=== PATIENT | female | born 1945 | race Caucasian/White ===

== ENCOUNTER → 2017-06-06 | Outpatient (CLI) | payer MEDICARE ==
--- NOTE | 2017-06-06 08:37 | MR ---
EXAMINATION TYPE: MR shoulder LT wo con DATE OF EXAM: 06/06/2017 8:28 AM COMPARISON: NONE HISTORY: lt shoulder pain TECHNIQUE: Multiplanar multispin echo imaging of the left shoulder was performed. FINDINGS: Rotator cuff : Full thickness partial tear is noted involving the anterior aspect of the supraspinatu s tendon at its critical zone. No evidence for complete retracted tear at this time. Underlying incre ased signal and thickening compatible with chronic tendinopathy. The remaining constituents of the ro tator cuff are grossly unremarkable. Bursa: No bursal effusion or thickening is seen. Musculature: There is no muscular tear, contusion, or atrophy. Acromioclavicular joint : Subacromial spurring with lateral downsloping of the acromion resulting in moderate subacromial impingement. Mild AC joint arthropathy. Osseous structures : There are no fractu res or regions of abnormal bone marrow signal intensity. Long biceps tendon : The biceps tendon is normally situated within the bicipital groove. No complete or partial biceps tendon tear is present. Glenohumeral Joint fluid : There is no glenohumeral joint effusion. Cartilage and Bone : No focal hyaline cartilage defects are noted. No Hill-Sachs, reverse Hill-Sachs, or bony Bankart lesions are seen. Labrum : There are no SLAP or soft tissue Bankart lesions. No paralabral cysts are seen. OTHER FINDINGS : none IMPRESSION: 1. Full thickness partial tear anterior aspect of the supraspinatus tendon at its critical zone secon britta to impingement. Underlying tendinopathy.
== END | disposition home or self-care (01) ==
LOC: RADMRIMAIN 07:41
PROVIDERS: ATTEND Orthopaedic Surgery
DX: S46.812A Strain of other muscles, fascia and tendons at shoulder and upper arm level, left arm, initial encounter (principal)

== ENCOUNTER 2017-11-27 06:02 | Day surgery (SDC) | payer MEDICARE ==
[2017-11-19 23:21] VITALS: BMI 25.7
--- NOTE | 2017-11-26 15:18 | HP ---
HISTORY AND PHYSICAL REASON FOR ADMISSION: Surgery scheduled on 11/27/2017 Tish Ott is a 72-year-old patient seen with progressive left shoulder pain. We discussed treatment options. She elected to proceed with arthroscopy. Consent was obtained. Preoperative medical clearance had been obtained. PAST MEDICAL HISTORY: Hypertension. PAST SURGICAL HISTORY: Shoulder arthroscopy, lumpectomy. MEDICATIONS: Adderall, Benadryl, Tylenol. ALLERGIES: THE PATIENT IS SENSITIVE TO NARCOTICS. SOCIAL HISTORY: Patient denies tobacco use. PHYSICAL EXAMINATION: Evaluation of the left shoulder flexion 120 degrees, abduction 110 degrees, external rotation is 10 degrees with some weakness. There is tenderness along the anterior lateral acromion rotator cuff insertion site. Impingement sign positive at 90 degrees. Distal neurovascular exam is intact. RADIOGRAPHS: Were obtained of the left shoulder revealing moderate acromioclavicular joint osteoarthritis. An MRI of left shoulder revealed rotator cuff tear and impingement. IMPRESSION: Left shoulder impingement with rotator cuff tear. PLAN: Left shoulder arthroscopy with subacromial decompression probable arthroscopic rotator cuff repair and debridement. Surgery scheduled for 11/27/2017. MMODL / IJN: [id number] /
[~2017-11-27 06:02] MED LIST: DEXAMETHASONE SOD PHOSPHATE 10 MG/ML 1 ML VIAL IV ONE; HYDROmorphone 0.5 MG/0.5 ML SYRINGE IVP PRN; LACTATED RINGERS 1,000 ML IV SCH; LIDOCAINE 1% 20 ML VIAL (10MG/ML) FOR IV START INTRADERMA PRN; MIDAZOLAM 2 MG/2 ML VIAL IV PRN; ONDANSETRON 4 MG/2 ML VIAL IVP ONE; SCOPOLAMINE 1.5MG/72HR PATCH TRANSDERM ONE; ceFAZolin 1,000 MG in DEXTROSE/WATER 1 50ML.BAG IV ONE
[2017-11-27] MEDS ORDERED: PROPOFOL 10 MG/ML 20 ML VIAL IV ONE (07:27)
[2017-11-27] MEDS ORDERED: SUCCINYLCHOLINE CHLORIDE 100 MG/5 ML SYR IV ONE (07:27)
[2017-11-27] MEDS ORDERED: ROCURONIUM BROMIDE 10 MG/ML 10 ML VIAL IV ONE (07:27)
[2017-11-27] MEDS ORDERED: NEOSTIGMINE 1 MG/ML 10 ML VIAL ONE (07:27)
[2017-11-27] MEDS ORDERED: GLYCOPYRROLATE 0.2 MG/ML 2 ML VIAL ONE (07:27)
[2017-11-27] MEDS ORDERED: MIDAZOLAM 2 MG/2 ML VIAL ONE (07:27)
[2017-11-27] MEDS ORDERED: PHENYLEPHRINE-0.9% NACL SYG 1 MG/10 ML SYRINGE ONE (07:27)
[2017-11-27] MEDS ORDERED: ROPIVACAINE 5 MG/ML 30 ML VIAL ONE (07:27)
[2017-11-27] MEDS ORDERED: ePHEDrine SULFATE/0.9% NACL/PF 50 MG/5 ML SYRINGE IV ONE (07:27)
[2017-11-27] MEDS ORDERED: LIDOCAINE 1% INJ 10MG/ML (20 ML MDV) ONE (07:27)
[2017-11-27] MEDS ORDERED: LIDOCAINE 2%-EPI 1:100,000 20 ML VIAL ONE (07:27)
[2017-11-27] MEDS ORDERED: LACTATED RINGERS 1,000 ML IV ONE (08:37)
--- NOTE | 2017-11-27 08:54 | P.OP ---
Date of Procedure: 11/27/17 Preoperative Diagnosis: Left shoulder impingement Postoperative Diagnosis: 1. Left shoulder rotator cuff tear 2. Left shoulder impingement 3. Left shoulder partial biceps tendon tear 4. Left shoulder superficial superior labral tear Procedure(s) Performed: 1. Left shoulder arthroscopic rotator cuff repair 2. Left shoulder arthroscopic subacromial decompression 3. Left shoulder arthroscopic biceps tenotomy 4. Left shoulder arthroscopic debridement superficial labral tear Implants: 1-5.5 peek anchor Anesthesia: GETA, regional (Interscalene block) Surgeon: Donte Mar Manager [employer]: Ced Peck Estimated Blood Loss (ml): 10 Pathology: none sent Condition: stable Disposition: PACU Indications for Procedure: 72-year-old patient seen with progressive left shoulder pain. After having treatment options discussed, she elected to proceed with arthroscopy. Operative Findings: See description of procedure Description of Procedure: Patient underwent a shoulder block by department of anesthesia. The patient was then taken to the operative suite. The patient underwent a general anesthetic by the department of anesthesia. The patient was placed into a lateral position and secured. There was appropriate padding of the bony prominence. Left shoulder was then prepped and draped in normal sterile orthopedic fashion. We placed the extremity in 10 pounds of longitudinal traction. A posterior incision was now made for a posterior working portal site. The trocar and cannula were inserted into the glenohumeral joint. Arthroscopy was initiated. Spinal needle was now inserted anteriorly, to ascertain the anterior working portal site. An incision was now made in that area, a trocar was inserted followed by a probe. There was superficial tearing of the superior labrum present. There were mild grade 1 chondromalacia changes of the glenohumeral joint without osteochondral tears present. There was partial tearing of the long head biceps tendon with hyperemia. I could visualize a distal supraspinatus rotator cuff tear from the glenohumeral side. I performed an arthroscopic biceps tenotomy. I debrided that superficial labral tear down to stable tissue. The residual labrum was stable. Instruments were now removed from glenohumeral joint. Utilizing the posterior working portal site, the trocar and cannula were inserted into the subacromial space. Arthroscopy initiated. I made an incision 2 fingerbreadths lateral to the acromion. I introduced my trocar followed by my [employer] ablator. I now began ablating thick subacromial bursal tissue, which exposed the undersurface of the anterior acromion. This was diminished subacromial space. There was a very prominent anterior acromion. A motorized bur was introduced and a subacromial decompression was performed. I also excised some osteophytes off the inferior aspect of the distal clavicle. The AC joint was visualized and noted to be moderately arthritic. I did not think enough toward a Ren procedure. I turned my attention to the rotator cuff tendon tear. There was a 1-1.5cm tear along the distal supraspinatus a little more posteriorly. I debrided the margins on a stable tissue. I abraded the footprint with a motorized bur. I passed 2 everted mattress sutures with good bites of rotator cuff tendon. I pull the tendon over the footprint and repaired utilizing one single 5.5 peek anchor. This compressed the tendon along the footprint nicely. Residual suture limbs were clipped. The repair was stable. Instruments now removed from the portal sites. All portal sites were approximated with nylon suture. Sterile dressings were applied followed by a sling. Misael CALZADA assisted with the procedure. The patient was awakened, transferred to a bed, and taken to recovery in stable condition.
[2017-11-27 09:00] VITALS: TEMP 97.2
[2017-11-27] MEDS ORDERED: KETOROLAC 30 MG/ML 1 ML VIAL IVP ONE (09:07)
[2017-11-27 10:57] VITALS: RESP 18
[2017-11-27 11:14] VITALS: BP 118/76; PULSE 66
--- NOTE | 2017-11-28 08:32 | P.ONQ ---
Anesthesiology Proc Note - PNB - Peripheral Nerve Block Performed Left Interscalene Single Time Out Performed: Yes Procedure Start Time: 07:05 Procedure Stop Time: 07:11 Indication: Acute Post-Operative Pain, Requested by physician Sedation Type: Sedate with meaningful contact maintained Preparation: Sterile Prep Position: Supine Needle Size: 50mm (2") Needle Gauge: 21 Technique: Ultrasound Injectate: 0.5% Ropivacaine (see comment for volume) (ropi .5% 30cc) Blood Aspirated: No Pain Paresthesia on Injection Noted: No Resistance on Injection: Normal Events: Uneventful and Well Tolerated
== END 2017-11-27 11:40 | disposition home or self-care (01) ==
LOC: OR 06:02
PROVIDERS: ATTEND Orthopaedic Surgery
DX: M75.102 Unspecified rotator cuff tear or rupture of left shoulder, not specified as traumatic (principal); M25.812 Other specified joint disorders, left shoulder; S43.432A Superior glenoid labrum lesion of left shoulder, initial encounter; S46.112A Strain of muscle, fascia and tendon of long head of biceps, left arm, initial encounter; X58.XXXA Exposure to other specified factors, initial encounter; M25.712 Osteophyte, left shoulder; I10 Essential (primary) hypertension; Z79.899 Other long term (current) drug therapy; Z88.5 Allergy status to narcotic agent
CPT/HCPCS: 64415; 29826; 29827; 29824; J2250; J1100; J2710; J2405; J2001; J1885; J0690; J2795; J2370; J0330; J2704

== ENCOUNTER 2018-03-16 08:35 | Day surgery (SDC) | payer MEDICARE ==
[2018-03-10 11:25] VITALS: BMI 24.4
--- NOTE | 2018-03-15 12:31 | HP ---
HISTORY AND PHYSICAL Surgery is 03/16/2018. Tish Ott is a 72-year-old patient seen with persistent left shoulder adhesions after previously having undergone arthroscopy. We discussed options. She elected to proceed with recommended manipulation under anesthesia left shoulder with steroid injection. Consent was obtained. PAST MEDICAL HISTORY: Noncontributory. PAST SURGICAL HISTORY: Right breast biopsy, bilateral shoulder arthroscopy. MEDICATIONS: Adderall, Bentyl. Tylenol. ALLERGIES: None reported. SOCIAL HISTORY: The patient denies current tobacco use. PHYSICAL EXAMINATION: Evaluation left shoulder: Flexion 110 degrees, abduction 100 degrees, external rotation is 50 degrees. Previous arthroscopic portal sites are well healed. Distal neurovascular exam is intact. RADIOGRAPHS: Radiographs of the left shoulder revealed a stable conversion to a flat anterior acromion. IMPRESSION: 1. Left shoulder adhesive capsulitis. 2. History of left shoulder arthroscopy. PLAN: Manipulation under anesthesia left shoulder with steroid injection. MMODL / IJN: [id number] /
[~2018-03-16 08:35] MED LIST changes: -HYDROmorphone 0.5 MG/0.5 ML SYRINGE IVP PRN; -LACTATED RINGERS 1,000 ML IV SCH; -LIDOCAINE 1% 20 ML VIAL (10MG/ML) FOR IV START INTRADERMA PRN; -MIDAZOLAM 2 MG/2 ML VIAL IV PRN; -ONDANSETRON 4 MG/2 ML VIAL IVP ONE; +ONDANSETRON ODT 4 MG TAB PO ONE; -SCOPOLAMINE 1.5MG/72HR PATCH TRANSDERM ONE; -ceFAZolin 1,000 MG in DEXTROSE/WATER 1 50ML.BAG IV ONE; +ceFAZolin IN SWFI 2 GM/20 ML SYRINGE IVP ONE
[2018-03-16] MEDS: LACTATED RINGERS 1,000 ML IV SCH ×2 (09:15→09:38)
[2018-03-16] MEDS ORDERED: LIDOCAINE 1% 20 ML VIAL (10MG/ML) FOR IV START INTRADERMA ONE (09:16)
[2018-03-16] MEDS ORDERED: ONDANSETRON 4 MG/2 ML VIAL IVP ONE (09:25)
[2018-03-16] MEDS ORDERED: PROPOFOL 10 MG/ML 20 ML VIAL IV ONE (09:40)
[2018-03-16] MEDS ORDERED: KETOROLAC 30 MG/ML 1 ML VIAL ONE (09:40)
[2018-03-16] MEDS ORDERED: LIDOCAINE 1% INJ 10MG/ML (20 ML MDV) ONE (09:40)
[2018-03-16 09:47] VITALS: TEMP 98
[2018-03-16] MEDS ORDERED: methylPREDNISolone ACETATE 80 MG/ML 1 ML VIAL INTRAARTIC ONE (09:57)
[2018-03-16] MEDS ORDERED: BUPIVACAINE (PF) 0.25% 30 ML VIAL INTRAARTIC ONE (09:57)
--- NOTE | 2018-03-16 10:08 | P.OP ---
Date of Procedure: 03/16/18 Preoperative Diagnosis: Left shoulder adhesive capsulitis Postoperative Diagnosis: Left shoulder adhesive capsulitis Procedure(s) Performed: Manipulation under anesthesia left shoulder with steroid injection Anesthesia: MAC Surgeon: Donte Mar Estimated Blood Loss (ml): 0 Pathology: none sent Disposition: PACU Indications for Procedure: 72-year-old patient seen with persistent left shoulder adhesive capsulitis. After having treatment options discussed, she elected to proceed with manipulation under anesthesia with steroid injection. Consent was obtained. Operative Findings: See description of procedure Description of Procedure: The patient was taken to monitored anesthesia area. The patient underwent IV sedation by the department of anesthesia. Once sufficient anesthesia was noted a manipulation of the left shoulder was performed achieving full range of motion. The anterior aspect of left shoulder was now sterilely prepped and draped. A solution 1 mL Depo-Medrol and 3 mL quarter percent plain Marcaine were injected into the glenohumeral joint under sterile technique. The shoulder was taken through range of motion. A sterile Band-Aid was applied. The patient was awakened having tolerated the procedure well.
[2018-03-16] MEDS: fentaNYL (PF) 50 MCG/ML 2 ML AMP IVP ONE ×2 (10:10→10:15)
[2018-03-16] MEDS ORDERED: fentaNYL (PF) 50 MCG/ML 2 ML AMP IVP ONE (10:24)
[2018-03-16 10:56] VITALS: RESP 16
[2018-03-16] MEDS ORDERED: ACETAMINOPHEN TAB 500 MG TAB PO ONE (11:20)
[2018-03-16 11:31] VITALS: BP 119/68; PULSE 62
== END 2018-03-16 11:41 | disposition home or self-care (01) ==
LOC: OR 08:35
PROVIDERS: ATTEND Orthopaedic Surgery
DX: M75.02 Adhesive capsulitis of left shoulder (principal); Z98.890 Other specified postprocedural states; K21.9 Gastro-esophageal reflux disease without esophagitis; K51.90 Ulcerative colitis, unspecified, without complications; Z79.811 Long term (current) use of aromatase inhibitors; Z88.5 Allergy status to narcotic agent; Z88.6 Allergy status to analgesic agent; Z88.8 Allergy status to other drugs, medicaments and biological substances
CPT/HCPCS: 23700; J1040; J1100; J2405; J2001; J3010; J1885; J2704